=== PATIENT | female | born 1975 | race African-American/Black ===

== ENCOUNTER 2017-12-30 13:47 | Day surgery (SDC) | payer MEDICAID ==
[~2017-12-30] VITALS: Ht 157.5 cm; Wt 68.7 kg
[~2017-12-30 13:47] MED LIST: NO HOME MEDICATIONS; PEPCID 20MG TAB20 MG PO
[2017-12-30 14:10] VITALS: BP 112/75; PULSE 77; TEMP 97.7
[2017-12-30] MEDS ORDERED: PHENERGAN 25 TA25 MG PO (14:18)
[2017-12-30 15:50] VITALS: BP 110/74; PULSE 76
[2017-12-30 16:05] VITALS: BP 112/78; PULSE 67
[2017-12-30 16:44] VITALS: BP 113/79; PULSE 86; TEMP 97.8
[2017-12-30 17:53] VITALS: BP 97/64; PULSE 68
== END 2017-12-30 16:35 | disposition home or self-care (01) ==
LOC: SDCO 13:47
DX: R19.7 Diarrhea, unspecified (principal); K29.30 Chronic superficial gastritis without bleeding; K92.0 Hematemesis; D50.9 Iron deficiency anemia, unspecified; K59.00 Constipation, unspecified
CPT/HCPCS: J2250; J3010; J7030

== ENCOUNTER 2019-01-13 09:17 | Emergency (ER) | payer MEDICARE, MEDICAID ==
[~2019-01-13] VITALS: Ht 165.1 cm; Wt 63.6 kg
[~2019-01-13 09:17] MED LIST changes: +PHENERGAN 25 TA25 MG PO
[2019-01-13 09:22] VITALS: BP 137/64; TEMP 97.1
[2019-01-13] MEDS ORDERED: CLEOCIN HCL300 MG PO (10:50)
[2019-01-13 11:59] VITALS: PULSE 77
== END 2019-01-13 11:29 | disposition home or self-care (01) ==
LOC: COL.ER 09:17
DX: N60.12 Diffuse cystic mastopathy of left breast (principal); N64.4 Mastodynia; H91.90 Unspecified hearing loss, unspecified ear

== ENCOUNTER → 2019-01-14 | Outpatient (CLI) | payer MEDICARE, MEDICAID ==
[~2019-01-14] MED LIST changes: +CLEOCIN HCL300 MG PO
== END ==
LOC: MC.RAD 08:01
DX: N60.12 Diffuse cystic mastopathy of left breast (principal)
CPT/HCPCS: G0279

== ENCOUNTER → 2019-07-18 | Outpatient (CLI) | payer MEDICARE, MEDICAID | LOC: MC.RAD 08:49 | DX: N60.12 Diffuse cystic mastopathy of left breast (principal) | CPT/HCPCS: G0279 ==

== ENCOUNTER 2021-01-12 11:11 | Emergency (ER) | payer MEDICARE, MEDICAID ==
[~2021-01-12] VITALS: Ht 157.5 cm; Wt 81.8 kg
[~2021-01-12 11:11] MED LIST changes: +PROTONIX 40MG T40 MG PO
[2021-01-12 12:20] LABS: BASO # 0.1 K/mm3 (0.0-0.2); BASO % 1.3 % (0.0-2.0); EOS # 0.5 K/mm3 (0.0-0.7); EOS % 6.9 % (0-4.0); GRAN # 3.8 K/mm3 (1.4-6.5); GRAN % 52.5 % (42.2-75.2); HEMATOCRIT 42.6 % (37.0-47.0); HEMOGLOBIN 14.1 g/dl (12.5-16.0); LYMPH # 2.3 K/mm3 (1.2-3.4); LYMPH % 31.9 % (20.0-51.0); MEAN CELL VOLUME 85 fl (80.0-100.0); MEAN CORPUSCULAR HEMOGLOBIN 28 pg (27.0-31.0); MEAN CORPUSCULAR HGB CONC 33 g/dl (33.0-37.0); MEAN PLATELET VOLUME 9.4 fl (7.4-10.4); MONO # 0.5 K/mm3 (0.1-0.6); MONO % 7.1 % (1.7-9.3); PLATELET COUNT 367 K/mm3 (130-400); RED BLOOD COUNT 5.02 M/mm3 (4.10-5.30)
[2021-01-12 12:32] LABS: ALBUMIN 3.8 gm/dL (3.5-5.0); BILIRUBIN,TOTAL 0.5 mg/dL (0.2-1.2); C-REACTIVE PROTEIN 0.7 mg/dL (0.00-0.50); CALCIUM 9.6 mg/dL (8.4-10.2); CREATININE, serum 0.8 mg/dL (0.57-1.11); POTASSIUM 3.8 mmol/L (3.5-4.5); TOTAL PROTEIN 7.9 gm/dL (6.2-8.1)
[2021-01-12 13:30] VITALS: BP 121/78; PULSE 774
== END 2021-01-12 13:32 | disposition home or self-care (01) ==
LOC: COL.ER 11:11
PROVIDERS: Nurse Practitioner
DX: R04.2 Hemoptysis (principal); R10.13 Epigastric pain; Z32.02 Encounter for pregnancy test, result negative
CPT/HCPCS: J7030

== ENCOUNTER 2021-03-09 18:11 | Emergency (ER) | payer MEDICARE, MEDICAID ==
[~2021-03-09] VITALS: Ht 157.5 cm; Wt 81.8 kg
[2021-03-09] MEDS ORDERED: CRUTCHES MC (19:32)
[2021-03-09 20:00] VITALS: BP 124/64; PULSE 80; TEMP 98.2
[2021-03-11] MEDS ORDERED: CRUTCHES MC (10:14)
== END 2021-03-09 20:00 | disposition home or self-care (01) ==
LOC: COL.ER 18:11
DX: S93.402A Sprain of unspecified ligament of left ankle, initial encounter (principal); S80.02XA Contusion of left knee, initial encounter; W11.XXXA Fall on and from ladder, initial encounter; X50.1XXA Overexertion from prolonged static or awkward postures, initial encounter

== ENCOUNTER → 2023-11-17 | Outpatient (CLI) | payer MEDICARE ==
[~2023-11-17] MED LIST changes: +CRUTCHES MC; +NS IV SCH; +SINCALIDE IV SCH
== END ==
LOC: COL.RAD 07:30
DX: R10.84 Generalized abdominal pain (principal)
CPT/HCPCS: A9537-JZ; J2805

== ENCOUNTER → 2024-03-01 | Outpatient (CLI) | payer MEDICARE ==
[~2024-03-01] MED LIST changes: -NS IV SCH; -SINCALIDE IV SCH
== END ==
LOC: MHCPAIN 10:39
DX: M25.562 Pain in left knee (principal); M25.572 Pain in left ankle and joints of left foot; M54.50 Low back pain, unspecified; R29.2 Abnormal reflex; G93.5 Compression of brain
CPT/HCPCS: G0463